=== PATIENT | female | born 1955 | race Caucasian/White ===

== ENCOUNTER 2022-05-10 05:45 | Day surgery (SDC) | payer MEDICARE, BC ==
--- NOTE | 2022-05-08 14:04 | NUR ---
POTASSIUM LOW, CALLED PT PER PHYSICIANS AND SURGEONS ADVISED HER TO NOT TAKE HCTZ THE DAY BEFORE SURGERY AND WE WILL REDRAW POTASSIUM LEVELS ON DAY OF SURGERY, DR GUERRA WAS NOTIFIED ALSO.
[~2022-05-10] VITALS: Ht 162.6 cm; Wt 84.0 kg
[~2022-05-10 05:45] MED LIST: COZAAR25 MG PO; ESCITALOPRAM OX20 MG PO; FARXIGA10 MG PO; GLIMEPIRIDE4 MG PO; GLUCOPHAGE XR750 MG PO; HYDROCHLOROTHIA25 MG PO; LIPITOR20 MG GT; NORCO 5-325 TA1 EACH PO; NORCO 7.5-3251 EACH PO; OZEMPIC1 MG/0.71; VICTOZA 3-0.6 MG/0.1 SUB-Q
[2022-05-10] MEDS ORDERED: CELECOXIB200 MG PO (07:41)
[2022-05-10] MEDS ORDERED: HYDROCODON-ACE1 EA10 PO (07:41)
--- NOTE | 2022-05-10 07:48 | NUR ---
05/10/22 0748 Lizzy Méndez 0735 PATIENT ARRIVES TO PACU UNRESPONSIVE TO PAIN. ORAL AIRWAY IN PLACE. RESP EVEN AND UNLABORED, MASK AT 8 LITERS. 0739 PATIENT OPENING EYES TO VERBAL STIMULI. ORAL AIRWAY REMOVED. RESP EVEN AND UNLABORED, MASK CONTINUED AT 8 LITERS. PATIENT DENIES PAIN OR NAUSEA. 0747 PATIENT AWAKE BUT DROWSY. REPORTS ACHING IN HER KNEE, BUT TOLERABLE. DENIES NAUSEA. RESP EVEN AND UNLABORED. OXYGEN OFF. PATIENT FOLLOWS COMMANDS TO DEEP BREATHE AND COUGH.
--- NOTE | 2022-05-10 08:26 | NUR ---
PT BACK TO ROOM FROM PACU ALERT AND AWAKE REPORTS PAIN 6/10, PT EATING CRACKERS AND DRINKING WATER TOLERATES WELL, NORCO GIVEN FOR PAIN. PTS AT BEDSIDE.
--- NOTE | 2022-05-10 09:07 | NUR ---
PT REPORTS PAIN IN MUCH BETTER SHE STATES ITS /, DENIES NAUSEA.
--- NOTE | 2022-05-10 10:36 | NUR ---
0930 PT REPORTS READINESS TO GO HOME DISCHARGE INSTRUCTIONS GIVEN TO PT AND BOTH VOICED UNDERSTANDING. PT AMBULATED TO BATHROOM WITHOUT ASSIST. SHE WAS ABLE TO VOID.
--- NOTE | 2022-05-10 10:41 | NUR ---
PT TAKEN TO OR FOR SURGERY. REMAINED IN RM. SEEMS CONTENT, NO QUESTIONS THIS TIME. GAVE ENCOURAGEMENT AND WILL FOLLOW
--- NOTE | 2022-05-11 08:15 | OR ---
[facility] [address], [place] [address] Signed DATE OF OPERATION: 05/10/2022 SURGEON: Wellington White MD PREOPERATIVE DIAGNOSIS: Medial meniscus tear, left knee. POSTOPERATIVE DIAGNOSIS: Medial meniscus tear, left knee. PROCEDURE PERFORMED: Left knee arthroscopy with partial medial meniscectomy. FURNACE CONVERTER: None. ANESTHESIA: General. BLOOD LOSS: Minimal. BRIEF HISTORY: Micha is a 66-year-old female with pain and locking in her knee. Risks and benefits of operative treatment discussed with her and she elected to proceed. Once consent was obtained, she was taken to the operating room after adequate anesthesia. She was placed on operating table. All downside pressure points well padded. The right leg was flexed, abducted, and externally rotated on a well-padded leg quiroz. The left was placed in a well-padded proximal leg quiroz with no tourniquet. The leg was then prepped and draped in the standard sterile fashion. Portal sites were injected with 0.25% Marcaine with epinephrine and the standard inferolateral and superolateral portals were made. The scope was introduced into the knee. 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 There were cartilaginous loose bodies throughout the knee. Moderate synovitis was noted throughout the knee. The medial and lateral gutters showed again more cartilaginous loose bodies with some moderate femoral osteophytes. Lateral compartment was intact. ACL and PCL were intact. 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 The meniscus was torn in a complex degenerative pattern. Electronically Signed By: WELLINGTON WHITE MD 05/11/22 0815 PATIENT NAME: MICHA MICHAELS OPERATIVE REPORT DATE OF : 55 REPORT #: [id number] PHYSICIAN: WELLINGTON WHITE MD PCP: BEREKET BOSTON [facility] REPORT IS CONFIDENTIAL AND NOT TO BE RELEASED WITHOUT AUTHORIZATION [facility] [address], [place] [address] Signed DESCRIPTION OF PROCEDURE: Standard inferomedial portal was made after localization using a spinal needle. The straight and curved biters were used to trim the meniscus tear back to a stable rim and all debris was evacuated using the shaver. The shaver was then used to smooth the meniscus in both directions and feathered out. The chondral flaps on the medial femoral condyle were also debrided using the shaver. The scope was withdrawn. Portals were closed with 3-0 nylon. The knee was injected with 60 mg Toradol at the end of the case. The wounds were dressed with Adaptic, ABD, and Endy wrap. She tolerated the procedure well. All sponge, needle, and instrument counts were correct. Wellington White MD BA/EVELYNL /[id number] Copies: ~ Electronically Signed By: WELLINGTON WHITE MD 05/11/22 0815 PATIENT NAME: MICHA MICHAELS OPERATIVE REPORT DATE OF : 55 REPORT #: [id number] PHYSICIAN: WELLINGTON WHITE MD PCP: BEREKET BOSTON [facility] REPORT IS CONFIDENTIAL AND NOT TO BE RELEASED WITHOUT AUTHORIZATION
== END 2022-05-10 09:45 | disposition home or self-care (01) ==
LOC: DS 05:45
PROVIDERS: ATTEND Specialist
PROC: 0SBD4ZZ Excision of Left Knee Joint, Percutaneous Endoscopic Approach (ICD-10-PCS; principal; 2022-05-10 06:45)
DX: S83.232A Complex tear of medial meniscus, current injury, left knee, initial encounter (principal); M65.9 Synovitis and tenosynovitis, unspecified; X58.XXXA Exposure to other specified factors, initial encounter; M22.42 Chondromalacia patellae, left knee
CPT/HCPCS: 36415; 80048; J1100; J1885; J2001; J2405; J2704; J3010; J7121